=== PATIENT | female | born 1950 | race Caucasian/White ===

== ENCOUNTER → 2022-02-04 | Day surgery (SDC) | payer MEDICARE, OTHER ==
[~2022-02-04] MED LIST: Proparacaine 0.5% Ophth Soln 15 ML Bottle ONE
== END ==
LOC: DL.SDS 08:50
PROVIDERS: ATTEND Ophthalmology
DX: E11.36 Type 2 diabetes mellitus with diabetic cataract (principal); H25.812 Combined forms of age-related cataract, left eye; E78.5 Hyperlipidemia, unspecified; I10 Essential (primary) hypertension; F17.210 Nicotine dependence, cigarettes, uncomplicated; Z90.49 Acquired absence of other specified parts of digestive tract; Z79.84 Long term (current) use of oral hypoglycemic drugs; Z79.899 Other long term (current) drug therapy; Z79.82 Long term (current) use of aspirin; Z88.1 Allergy status to other antibiotic agents; Z88.8 Allergy status to other drugs, medicaments and biological substances; Z88.0 Allergy status to penicillin
CPT/HCPCS: 00142; 66984; V2632

== ENCOUNTER 2022-02-18 08:37 | Day surgery (SDC) | payer MEDICARE, OTHER ==
[~2022-02-18 08:37] MED LIST changes: +Acetaminophen 325 MG Tab PO PRN; +Acetaminophen/Codeine 300-30 MG Tab PO PRN; +Cataract Ophth Solution EYERT ONE; +Moxifloxacin 0.5% Ophth Soln 3 ML Bottle EYERT ONE; +Ondansetron 4 MG/2 ML SDV IVPUSH PRN; +Phenylephrine 10% Ophth Soln 5 ML Bot EYERT PRN; +Povidone-Iodine 5% Sterile Ophth Soln 30 ML Bottle EYERT ONE; +Proparacaine 0.5% Ophth Soln 15 ML Bottle EYERT ONE; -Proparacaine 0.5% Ophth Soln 15 ML Bottle ONE; +Sodium Chloride 0.9% 10 ML Syringe FLUSH PRN; +Timolol Maleate 0.5% Ophth Soln 5 ML Bottle EYERT ONE; +Tropicamide 1% Ophth Soln 15 ML Bottle EYERT ONE
[2022-02-18] MEDS ORDERED: Sodium Chloride 0.9% 10 ML Syringe IV ONE (08:38)
[2022-02-18] MEDS ORDERED: Midazolam 1 MG/ML 2 ML SDV IV ONE (08:38)
[2022-02-18] MEDS ORDERED: Dexamethasone 4 MG/ML SDV IV ONE (08:38)
[2022-02-18] MEDS ORDERED: Proparacaine 0.5% Ophth Soln 15 ML Bottle EYERT ONE (09:20)
[2022-02-18] MEDS ORDERED: Povidone-Iodine 5% Sterile Ophth Soln 30 ML Bottle EYERT ONE (09:21)
[2022-02-18] MEDS ORDERED: Apraclonidine 0.5% Ophth Soln 5 ML Bot EYERT ONE (09:21)
[2022-02-18] MEDS ORDERED: Diclofenac Sodium 0.1% Ophth Soln 5 ML Bottle EYERT ONE (09:22)
[2022-02-18] MEDS ORDERED: Balanced Salt Solution Ophth Irrig 500 ML Bottle IOCULAR ONE (09:23)
[2022-02-18] MEDS ORDERED: Lidocaine 1% 5 ML VIAL ONE (09:23)
[2022-02-18] MEDS ORDERED: Dexamethasone/Neomycin/Polymyxin B Ophth Oint 3.5 GM Tube EYERT ONE (09:23)
[2022-02-18] MEDS ORDERED: Vancomycin 500 MG SDV EYERT ONE (09:24)
[2022-02-18] MEDS ORDERED: Chondroitin Sulfate/Hyaluronate Sodium Ophth Inj 0.75 ML Syringe EYERT ONE (09:26)
== END 2022-02-18 10:20 | disposition home or self-care (01) ==
LOC: DL.SDS 08:37
PROVIDERS: ATTEND Ophthalmology
DX: E11.36 Type 2 diabetes mellitus with diabetic cataract (principal); H25.811 Combined forms of age-related cataract, right eye; E78.5 Hyperlipidemia, unspecified; I10 Essential (primary) hypertension; F17.210 Nicotine dependence, cigarettes, uncomplicated; Z90.49 Acquired absence of other specified parts of digestive tract; Z98.890 Other specified postprocedural states; Z79.899 Other long term (current) drug therapy; Z79.82 Long term (current) use of aspirin; Z88.1 Allergy status to other antibiotic agents; Z88.0 Allergy status to penicillin; Z79.84 Long term (current) use of oral hypoglycemic drugs
CPT/HCPCS: 00142; 66984; A9270; J1100; J2250; J3370; J3490; V2632